=== PATIENT | male | born 1990 | race Two or more races ===

== ENCOUNTER 2023-03-12 12:07 | Inpatient (IN) | payer OTHER ==
[~2023-03-12] VITALS: Ht 177.8 cm; Wt 90.2 kg
[2023-03-12 14:15] LABS: Albumin 4.4 g/dL (3.4-5.0); Calcium 8.2 mg/dL (8.5-10.1)
[2023-03-12 14:18] LABS: BUN/Creatinine Ratio 8.7 (10.0-20.0); Bilirubin, Total 1.3 mg/dL (0.2-1.0); Total Protein 7.7 g/dL (6.4-8.2)
[2023-03-12 15:10] LABS: Potassium 2.9 mmol/L (3.5-5.1)
[2023-03-12] MEDS ORDERED: CLINDAMYCIN HCL 150 MG CAP PO ONE (16:00)
[2023-03-12] MEDS ORDERED: POTASSIUM EFFERVESENT TAB 25 MEQ PO ONE (16:00)
[2023-03-12] MEDS ORDERED: cefTRIAXone 1GM/50ML D5W 50 ML IV ONE (16:00)
[2023-03-12 16:26] LABS: Basophils # (auto) 0.1 10 ^3/uL (0-0.2); Basophils % (auto) 0.6 % (0.0-2.0); Eosinophils # (auto) 0.1 10 ^3/uL (0-0.8); Eosinophils % (auto) 0.8 % (0.0-7.0); Hematocrit 44.3 % (41.0-53.0); Hemoglobin 14.9 g/dL (13.5-17.5); Lymphocytes # (auto) 1.6 10 ^3/uL (0.4-5.4); Lymphocytes % (auto) 17.3 % (10.0-50.0); Mean Corpuscular Hemoglobin 31.7 pg (28.0-32.0); Mean Corpuscular Hgb Conc. 33.7 g/dL (32.0-36.0); Mean Corpuscular Volume 93.9 fL (80.0-100.0); Monocytes # (auto) 0.5 10 ^3/uL (0-1.3); Neutrophils # (auto) 7.1 10 ^3/uL (1.6-8.6); Neutrophils % (auto) 76.3 % (37.0-80.0); Red Blood Cells 4.72 10^6/uL (4.5-5.90); Red Cell Distribution Width 14.5 % (11.8-14.3); White Blood Cell 9.3 10^3/uL (4.4-10.8)
[2023-03-12] MEDS ORDERED: SOD CHL 0.45% 1,000 ML IV SCH (17:00)
[2023-03-12] MEDS ORDERED: MORPHINE SULFATE 4 MG/ML SYR/VIAL IV ONE (17:00)
[2023-03-12] MEDS ORDERED: NITROGLYCERIN 0.4 MG SL TAB SL PRN (17:00)
[2023-03-12] MEDS ORDERED: ACETAMINOPHEN 325 MG TAB PO PRN (17:00)
[2023-03-12] MEDS ORDERED: MORPHINE SULFATE INJ 2 MG/ml SYRG IV PRN (17:00)
[2023-03-12] MEDS ORDERED: SOD CHL 0.45% 1,000 ML IV ONE (17:30)
[2023-03-12 17:57] LABS: CRP High Sensitivity 0.56 mg/dL (< 0.3); Magnesium 1.9 mg/dL (1.6-2.6)
[2023-03-12 17:59] LABS: Lactic Acid w/Reflex 6.8 mmol/L (0.4-2.0)
[2023-03-12 18:04] LABS: INR 1.06 (0.9-1.15); Partial Thromboplastin Time 22.2 SEC (24.5-34.5)
[2023-03-12] MEDS: POTASSIUM CHL 20MEQ/100ML 100 ML IV SCH ×2 (19:39→21:24)
[2023-03-12] MEDS: HYDROcodone-ACET 5/325MG TAB PO PRN (19:51)
[2023-03-12 22:00] VITALS: BP 141/84
[2023-03-12] MEDS: CLINDAMYCIN HCL 150 MG CAP PO SCH (22:17)
[2023-03-12] MEDS: MORPHINE SULFATE INJ 2 MG/ml SYRG IV PRN (22:18)
[2023-03-12 22:59] VITALS: BP 141/84
[2023-03-13 05:00] VITALS: BP 122/78
[2023-03-13] MEDS: CLINDAMYCIN HCL 150 MG CAP PO SCH ×3 (06:03→21:50)
[2023-03-13 06:17] LABS: Basophils # (auto) 0 10 ^3/uL (0-0.2); Basophils % (auto) 0.5 % (0.0-2.0); Eosinophils # (auto) 0.1 10 ^3/uL (0-0.8); Eosinophils % (auto) 1.9 % (0.0-7.0); Hematocrit 41.1 % (41.0-53.0); Hemoglobin 14.2 g/dL (13.5-17.5); Lymphocytes # (auto) 1.8 10 ^3/uL (0.4-5.4); Lymphocytes % (auto) 24.2 % (10.0-50.0); Mean Corpuscular Hemoglobin 32.3 pg (28.0-32.0); Mean Corpuscular Hgb Conc. 34.5 g/dL (32.0-36.0); Mean Corpuscular Volume 93.5 fL (80.0-100.0); Monocytes # (auto) 0.6 10 ^3/uL (0-1.3); Monocytes % (auto) 8.8 % (0.0-12.0); Neutrophils # (auto) 4.7 10 ^3/uL (1.6-8.6); Neutrophils % (auto) 64.6 % (37.0-80.0); Nucleated Red Blood Cells % 0.1 %; Red Cell Distribution Width 14.5 % (11.8-14.3); White Blood Cell 7.3 10^3/uL (4.4-10.8)
[2023-03-13 06:38] LABS: BUN/Creatinine Ratio 9.7 (10.0-20.0); Calcium 8.2 mg/dL (8.5-10.1); Potassium 3.6 mmol/L (3.5-5.1)
[2023-03-13 08:37] VITALS: BP 146/82
[2023-03-13] MEDS: FOLIC ACID 1 MG TAB PO SCH (09:58)
[2023-03-13] MEDS: MORPHINE SULFATE INJ 2 MG/ml SYRG IV PRN ×3 (09:58→21:01)
[2023-03-13] MEDS: THIAMINE HCL 100 MG TAB PO SCH (09:58)
[2023-03-13] MEDS: cefTRIAXone 1GM/50ML D5W 50 ML IV SCH (09:58)
[2023-03-13 12:48] VITALS: BP 135/90
[2023-03-13] MEDS: ONDANSETRON HCL 4 MG/2 ML VIAL IV PRN ×2 (14:45→21:00)
[2023-03-13 17:00] VITALS: BP 133/77
[2023-03-13] MEDS: HYDROcodone-ACET 5/325MG TAB PO PRN (18:34)
[2023-03-13] MEDS: FOLIC ACID 1 MG, MULTIPLE VITAMIN 10 ML, MAGNESIUM SULF SDV 50% 8 MEQ, THIAMINE INJ 100... INJ SCH ×5 (20:43)
[2023-03-13 22:00] VITALS: BP 141/95
[2023-03-14] MEDS: ONDANSETRON HCL 4 MG/2 ML VIAL IV PRN ×3 (04:03→20:51)
[2023-03-14] MEDS: MORPHINE SULFATE INJ 2 MG/ml SYRG IV PRN ×4 (04:04→20:52)
[2023-03-14 05:00] VITALS: BP_SYST 103; BP_SYST 134; BP_DIAS 66; BP_DIAS 79
[2023-03-14] MEDS: CLINDAMYCIN HCL 150 MG CAP PO SCH ×3 (06:22→21:52)
[2023-03-14 08:47] VITALS: BP 119/80
[2023-03-14] MEDS: THIAMINE HCL 100 MG TAB PO SCH (09:43)
[2023-03-14] MEDS: FOLIC ACID 1 MG TAB PO SCH (09:43)
[2023-03-14] MEDS: cefTRIAXone 1GM/50ML D5W 50 ML IV SCH (09:49)
[2023-03-14] MEDS: HYDROcodone-ACET 5/325MG TAB PO PRN ×3 (09:50→23:37)
[2023-03-14 13:00] VITALS: BP 145/92
[2023-03-14] MEDS: FOLIC ACID 1 MG, MULTIPLE VITAMIN 10 ML, MAGNESIUM SULF SDV 50% 8 MEQ, THIAMINE INJ 100... INJ SCH ×5 (13:20)
[2023-03-14 17:00] VITALS: BP 123/81
[2023-03-14 22:00] VITALS: BP 133/91
[2023-03-15 05:00] VITALS: BP 118/79
[2023-03-15] MEDS: CLINDAMYCIN HCL 150 MG CAP PO SCH ×3 (06:05→21:01)
[2023-03-15 08:41] LABS: Hepatitis B Surface Antibody Positive (Negative)
[2023-03-15] MEDS: MORPHINE SULFATE INJ 2 MG/ml SYRG IV PRN ×3 (08:49→20:28)
[2023-03-15] MEDS: ONDANSETRON HCL 4 MG/2 ML VIAL IV PRN ×3 (09:01→20:23)
[2023-03-15 09:19] LABS: Hepatitis A Total Antibody Positive (Negative)
[2023-03-15 09:55] LABS: Hepatitis C Antibody Negative (Negative)
[2023-03-15] MEDS ORDERED: LACTULOSE 20Gm/30ML SOLN PO ONE (10:00)
[2023-03-15] MEDS: FOLIC ACID 1 MG TAB PO SCH (10:01)
[2023-03-15] MEDS: cefTRIAXone 1GM/50ML D5W 50 ML IV SCH (10:01)
[2023-03-15] MEDS: THIAMINE HCL 100 MG TAB PO SCH (10:02)
[2023-03-15 10:05] VITALS: BP 138/96
[2023-03-15] MEDS: HYDROcodone-ACET 5/325MG TAB PO PRN ×2 (10:07→22:54)
[2023-03-15] MEDS: FOLIC ACID 1 MG, MULTIPLE VITAMIN 10 ML, MAGNESIUM SULF SDV 50% 8 MEQ, THIAMINE INJ 100... INJ SCH ×5 (12:24)
[2023-03-15 14:07] VITALS: BP 112/69
[2023-03-15 16:40] VITALS: BP 110/66
[2023-03-15 22:00] VITALS: BP 98/76
[2023-03-16 01:57] LABS: Urine Bacteria NONE SEEN /hpf (None Seen); Urine Blood Negative /uL (Negative); Urine Specific Gravity 1.004 (1.001-1.035); Urine WBC <1 /hpf (0 - 3)
[2023-03-16] MEDS: ONDANSETRON HCL 4 MG/2 ML VIAL IV PRN ×3 (03:02→19:35)
[2023-03-16] MEDS: MORPHINE SULFATE INJ 2 MG/ml SYRG IV PRN ×3 (03:06→19:43)
[2023-03-16 05:00] VITALS: BP 114/78
[2023-03-16] MEDS: CLINDAMYCIN HCL 150 MG CAP PO SCH ×3 (06:00→21:37)
[2023-03-16 06:01] LABS: INR 1.12 (0.9-1.15); Partial Thromboplastin Time 29.8 SEC (24.5-34.5)
[2023-03-16 08:00] VITALS: BP 119/71
[2023-03-16] MEDS ORDERED: ceFAZolin 1GM/50ML 100 ML IV ONE (09:37)
[2023-03-16] MEDS ORDERED: ceFAZolin 1GM VL ONE (09:39)
[2023-03-16] MEDS ORDERED: fentaNYL CITRATE 100 MCG/2 ML VL ONE (09:42)
[2023-03-16] MEDS ORDERED: MIDAZOLAM HCL 2MG/2ML 2ml VIAL (1mg/ml) ONE (09:42)
[2023-03-16] MEDS ORDERED: MEPERIDINE HCL (25 MG/ML) 1ML VIAL ONE (09:42)
[2023-03-16] MEDS ORDERED: POVIDONE IODINE 10 % TOPICAL OINT 30GM TOP ONE (10:23)
[2023-03-16] MEDS ORDERED: ePHEDrine SULFATE 50 MG/ML AMP IV PRN (10:30)
[2023-03-16] MEDS ORDERED: ONDANSETRON HCL 4 MG/2 ML VIAL IV PRN (10:30)
[2023-03-16] MEDS ORDERED: MIDAZOLAM HCL 2MG/2ML 2ml VIAL (1mg/ml) IV PRN (10:30)
[2023-03-16] MEDS ORDERED: MORPHINE SULFATE 4 MG/ML SYR/VIAL IV PRN (10:30)
[2023-03-16] MEDS ORDERED: LABETALOL HCL 5 MG/ML 4ML SYRINGE IV PRN (10:30)
[2023-03-16] MEDS ORDERED: KETOROLAC TROMETH 30 MG/ML 1ML VIAL IV ONE (10:30)
[2023-03-16] MEDS ORDERED: PROPOFOL 10 MG/ML 20 ML IV ONE (10:45)
[2023-03-16] MEDS ORDERED: DexAMETHasone SOD PHOS 10MG/1ML VIAL INJ ONE (10:45)
[2023-03-16] MEDS: HYDROmorphone HCL 2 MG/ML VL/or syr IV PRN ×2 (10:54→11:07)
[2023-03-16] MEDS: FOLIC ACID 1 MG TAB PO SCH (12:25)
[2023-03-16] MEDS: THIAMINE HCL 100 MG TAB PO SCH (12:25)
[2023-03-16] MEDS: cefTRIAXone 1GM/50ML D5W 50 ML IV SCH (12:26)
[2023-03-16] MEDS: FOLIC ACID 1 MG, MULTIPLE VITAMIN 10 ML, MAGNESIUM SULF SDV 50% 8 MEQ, THIAMINE INJ 100... INJ SCH ×5 (12:37)
[2023-03-16 13:30] VITALS: BP 146/84
[2023-03-16 16:40] VITALS: BP 118/82
[2023-03-16] MEDS: HYDROcodone-ACET 5/325MG TAB PO PRN ×2 (16:57→21:37)
[2023-03-16 22:00] VITALS: BP 122/85
[2023-03-17] MEDS: ONDANSETRON HCL 4 MG/2 ML VIAL IV PRN ×5 (00:57→20:13)
[2023-03-17] MEDS: MORPHINE SULFATE INJ 2 MG/ml SYRG IV PRN ×5 (01:02→20:17)
[2023-03-17 05:00] VITALS: BP 119/68
[2023-03-17] MEDS: CLINDAMYCIN HCL 150 MG CAP PO SCH ×3 (05:28→21:09)
[2023-03-17 08:00] VITALS: BP 106/70
[2023-03-17] MEDS: cefTRIAXone 1GM/50ML D5W 50 ML IV SCH (08:50)
[2023-03-17] MEDS: THIAMINE HCL 100 MG TAB PO SCH (09:43)
[2023-03-17] MEDS: FOLIC ACID 1 MG TAB PO SCH (09:43)
[2023-03-17 12:00] VITALS: BP 117/81
[2023-03-17] MEDS: HYDROcodone-ACET 5/325MG TAB PO PRN (12:23)
[2023-03-17] MEDS: FOLIC ACID 1 MG, MULTIPLE VITAMIN 10 ML, MAGNESIUM SULF SDV 50% 8 MEQ, THIAMINE INJ 100... INJ SCH ×5 (12:25)
[2023-03-17 16:00] VITALS: BP 119/80
[2023-03-17 22:00] VITALS: BP 106/66
[2023-03-18] MEDS: ONDANSETRON HCL 4 MG/2 ML VIAL IV PRN (04:51)
[2023-03-18] MEDS: MORPHINE SULFATE INJ 2 MG/ml SYRG IV PRN (04:56)
[2023-03-18 05:00] VITALS: BP 109/75
[2023-03-18] MEDS: CLINDAMYCIN HCL 150 MG CAP PO SCH ×2 (05:38→14:00)
[2023-03-18 09:00] VITALS: BP 109/70
[2023-03-18 09:19] LABS: Basophils # (auto) 0.1 10 ^3/uL (0-0.2); Basophils % (auto) 0.6 % (0.0-2.0); Eosinophils # (auto) 0.3 10 ^3/uL (0-0.8); Eosinophils % (auto) 3.4 % (0.0-7.0); Hematocrit 47.9 % (41.0-53.0); Hemoglobin 16.1 g/dL (13.5-17.5); Lymphocytes # (auto) 1.7 10 ^3/uL (0.4-5.4); Lymphocytes % (auto) 19.2 % (10.0-50.0); Mean Corpuscular Hgb Conc. 33.7 g/dL (32.0-36.0); Mean Corpuscular Volume 95.1 fL (80.0-100.0); Monocytes # (auto) 0.8 10 ^3/uL (0-1.3); Monocytes % (auto) 8.7 % (0.0-12.0); Neutrophils % (auto) 68.1 % (37.0-80.0); Nucleated Red Blood Cells % 0.2 %; Red Blood Cells 5.03 10^6/uL (4.5-5.90); Red Cell Distribution Width 14.6 % (11.8-14.3); White Blood Cell 8.8 10^3/uL (4.4-10.8)
[2023-03-18 09:24] LABS: Calcium 9.5 mg/dL (8.5-10.1); Potassium 4.2 mmol/L (3.5-5.1)
[2023-03-18 09:26] LABS: BUN/Creatinine Ratio 11.6 (10.0-20.0)
[2023-03-18] MEDS ORDERED: THIA100T13 PO (10:00)
[2023-03-18] MEDS ORDERED: FOLI-119 PO (10:00)
[2023-03-18] MEDS ORDERED: CLIN300C70 PO (10:00)
[2023-03-18] MEDS ORDERED: HYDR-4902 PO (10:00)
[2023-03-18] MEDS: cefTRIAXone 1GM/50ML D5W 50 ML IV SCH (11:31)
[2023-03-18] MEDS: FOLIC ACID 1 MG TAB PO SCH (11:32)
[2023-03-18] MEDS: HYDROcodone-ACET 5/325MG TAB PO PRN (11:32)
[2023-03-18] MEDS: THIAMINE HCL 100 MG TAB PO SCH (11:32)
[2023-03-18] MEDS: FOLIC ACID 1 MG, MULTIPLE VITAMIN 10 ML, MAGNESIUM SULF SDV 50% 8 MEQ, THIAMINE INJ 100... INJ SCH ×5 (12:00)
[2023-03-18 14:00] VITALS: BP 126/82
[2023-03-18 17:00] VITALS: BP 118/87
== END 2023-03-18 17:38 | disposition home or self-care (01) | DRG 383 ==
LOC: ER 12:07 → OVERFLOW 17:06 → CENTRAL 21:50
PROVIDERS: ADMIT Registered Nurse; ATTEND Family Medicine
PROC: 0Y9C0ZZ Drainage of Right Upper Leg, Open Approach (ICD-10-PCS; principal; 2023-03-16 09:52)
DX: L03.115 Cellulitis of right lower limb (principal); K70.10 Alcoholic hepatitis without ascites; I50.9 Heart failure, unspecified; E66.9 Obesity, unspecified; I11.0 Hypertensive heart disease with heart failure; E87.6 Hypokalemia; L02.415 Cutaneous abscess of right lower limb; W57.XXXA Bitten or stung by nonvenomous insect and other nonvenomous arthropods, initial encounter; I10 Essential (primary) hypertension; E86.0 Dehydration; F10.129 Alcohol abuse with intoxication, unspecified; S70.11XA Contusion of right thigh, initial encounter; X58.XXXA Exposure to other specified factors, initial encounter; Y93.89 Activity, other specified; Y92.89 Other specified places as the place of occurrence of the external cause; Y99.8 Other external cause status
CPT/HCPCS: 36415; 73700; 76705; 80048; 80053; 80061; 80320; 81001; 83036; 83605; 83735; 84443; 85025; 85610; 85652; 85730; 86141; 86704; 86706; 86708; 86803; 87040; 87070; 87075; 87205; 87340; 93971; 96361; 96365; 96367; 96375; G0378; J0690; J0696; J1100; J2250; J2405; J2704; J3480